=== PATIENT | female | born 1945 | race Two or more races ===

== ENCOUNTER 2023-02-22 18:14 | Emergency (ER) | payer OTHER ==
[~2023-02-22] VITALS: Ht 152.4 cm; Wt 45.4 kg
[2023-02-22] MEDS ORDERED: NAMENDA10 MG (18:48)
[2023-02-22] MEDS ORDERED: ZOLOFT100 MG (18:48)
[2023-02-22] MEDS ORDERED: PEPCID AC20 MG (18:48)
[2023-02-22] MEDS ORDERED: SYNTHROID50 MCG (18:48)
[2023-02-22 23:26] LABS: INR 1.14; PARTIAL THROMBOPLASTIN TIME 25.1 SECONDS (22.0-34.0); PROTHROMBIN TIME 11.9 SECONDS (9.0-11.5)
[2023-02-22 23:30] LABS: ALBUMIN 3.8 gm/dL (3.4-5.0); BILIRUBIN TOTAL 0.8 mg/dL (0.3-1.2); CALCIUM 9.3 mg/dL (8.5-10.1); CREATININE SERUM 1.13 mg/dL (0.55-1.02); GFR 46.69; GLOBULINA 3.6 G/DL (2.4-3.5); POTASSIUM 4.72 mEq/L (3.5-5.1); TOTAL PROTEIN 7.4 gm/dL (6.4-8.2)
[2023-02-22 23:31] LABS: HEMATOCRIT 36.7 % (36.0-45.00); HEMOGLOBIN 12.4 g/dL (12.0-15.00); MEAN CELL VOLUME 88.3 fL (80.00-100.00); MEAN CORPUSCULAR HEMOGLOBIN 29.9 pg (27.00-32.0); MEAN CORPUSCULAR HGB CONC 33.8 g/dl (32.0-36.0); PLATELET COUNT 211 K/uL (150-450); RED BLOOD COUNT 4.15 M/uL (4.00-6.00); RED CELL DISTRIBUTION WIDTH 15.5 % (11.5-14.5)
== END 2023-02-23 04:04 | disposition home or self-care (01) ==
LOC: ER 18:15
PROVIDERS: General Practice
DX: K59.01 Slow transit constipation (principal)